=== PATIENT | female | born 1990 | race African-American/Black ===

== ENCOUNTER 2022-08-28 17:35 | Emergency (ER) | payer OTHER ==
[2022-08-28 17:42] VITALS: BP 97/65; PULSE 89; RESP 18; TEMP 97; BMI 38.5
[2022-08-28] MEDS ORDERED: KETOROLAC TROMETHAMINE 60 MG/2 ML VIAL IM ONE (18:18)
[2022-08-28] MEDS ORDERED: LIDOCAINE 5% TOPICAL PATCH TP ONE (18:18)
[2022-08-28] MEDS ORDERED: KETOROLAC TROMETHAMINE 30 MG/1 ML VIAL ONE (18:23)
[2022-08-28] MEDS ORDERED: LIDOCAINE 5% TOPICAL PATCH ONE (18:23)
== END 2022-08-28 20:26 | disposition home or self-care (01) ==
LOC: JERFT 17:35 → JER 17:35 → JERFT 20:26
PROC: 3E023GC Introduction of Other Therapeutic Substance into Muscle, Percutaneous Approach (ICD-10-PCS; principal; 2022-08-28)
DX: M54.31 Sciatica, right side (principal)
CPT/HCPCS: 72100-TC-FY; 73502-TC-RT-FY; 96372; 99284-25

== ENCOUNTER 2022-11-05 21:58 | Emergency (ER) | payer OTHER ==
[2022-11-05 22:14] VITALS: BP 142/85; PULSE 103; RESP 20; TEMP 98.3; BMI 39.6
[2022-11-05] MEDS ORDERED: diazePAM 5 MG TABLET PO ONE (22:53)
[2022-11-05] MEDS ORDERED: KETOROLAC TROMETHAMINE 60 MG/2 ML VIAL IM ONE (22:54)
[2022-11-05] MEDS ORDERED: KETOROLAC TROMETHAMINE 60 MG/2 ML VIAL ONE (22:59)
[2022-11-05] MEDS ORDERED: diazePAM 5 MG TABLET ONE (23:00)
== END 2022-11-05 23:45 | disposition home or self-care (01) ==
LOC: JER 21:58
PROC: 3E0233Z Introduction of Anti-inflammatory into Muscle, Percutaneous Approach (ICD-10-PCS; principal; 2022-11-05)
DX: M54.50 Low back pain, unspecified (principal)
CPT/HCPCS: 99284-25